=== PATIENT | male | born 1965 | race Two or more races ===

== ENCOUNTER 2018-12-06 07:00 | Inpatient (IN) | payer OTHER ==
[~2018-12-06] VITALS: Ht 162.6 cm; Wt 60.8 kg
[2018-12-08] VITALS (14 sets, daily range): BP systolic 125–142; BP diastolic 79–98
[2018-12-08] MEDS ORDERED: LR 1000ml 1,000 ML IVLG SCH (06:32)
--- NOTE | 2018-12-08 06:38 | Anethesia Preoperative Eval ---
Anesthesia Pre-op PMH/ROS General Date of Evaluation: Dec 08, 2018 Time of Evaluation: 09:36 Anesthesiologist: Gal ASA Score: ASA 1 Mallampati Score Class I : Soft palate, uvula, fauces, pillars visible Class II: Soft palate, uvula, fauces visible Class III: Soft palate, base of uvula visible Class IV: Only hard plate visible Mallampati Classification: Class I Surgeon: Thalia Diagnosis: Neck Pain Surgical Procedure: ADR C5-6, ACDF C6-7 Anesthesia History: none Family History: no anesthesia problems Allergies: Coded Allergies: No Known Allergies (Unverified , 12/04/18) Medications: see eMAR Patient NPO?: Yes Anesthesia Pre-op Phys. Exam Physician Exam Vital Signs Date Time Temp Pulse Resp B/P (MAP) Pulse Ox O2 Delivery O2 Flow Rate FiO2 12/08/18 08:10 97.6 65 18 125/79 (94) 98 12/08/18 08:25 Room Air Constitutional: NAD Neurologic: CN 2-12 intact Cardiovascular: RRR Respiratory: CTA Gastrointestinal: S/NT/ND Airway Exam Mallampati Score: Class I MO: full ROM: limited Teeth: missing, intact Anesthesia Pre-op A/P Risk Assessment & Plan Assessment: ASA 1 Plan: GA, SED, GlideScope Go Status Change Before Surgery: No Pre-Antibiotics Dru Grams Ancef IV Given Within 1 Hr of Incision: Yes Time Given: 10:06 Bon Satno MD Dec 08, 2018 06:38
[2018-12-08] MEDS ORDERED: Hydromorphone 0.5mg/0.5ml inj IVP PRN (06:45)
[2018-12-08] MEDS ORDERED: Acetaminophen (Non formulary) 100 ML IV ONE (06:45)
[2018-12-08] MEDS ORDERED: HYDROcodone/Acetamin 7.5/325 tab ORAL PRN ×3 (06:45→15:00)
[2018-12-08] MEDS ORDERED: Meperidine 50mg/ml Inj(FOR RIGORS ONLY) IVP PRN (06:45)
[2018-12-08] MEDS ORDERED: fentaNYL 100 mcg/2 mL IV PRN (06:45)
[2018-12-08] MEDS ORDERED: Ketorolac 30mg Inj IV PRN ×2 (06:45)
[2018-12-08] MEDS ORDERED: LORazepam Inj 2mg/ml 1ml IV PRN (06:45)
[2018-12-08] MEDS ORDERED: Labetalol 5mg/ml 20ml vial IV PRN (06:45)
[2018-12-08] MEDS ORDERED: DiphenhydrAMINE 50mg/ml Inj IVP PRN (06:45)
[2018-12-08] MEDS ORDERED: Metoclopramide 10mg/2ml Inj IVP PRN ×2 (06:45→15:00)
[2018-12-08] MEDS ORDERED: HYDROcodone/Acetamin 5/325 tab ORAL PRN ×2 (06:45→15:00)
[2018-12-08] MEDS ORDERED: Atropine Sulfate 0.4mg/ml inj IVP PRN (06:45)
[2018-12-08] MEDS ORDERED: oxyCODONE HCL/Acetaminophen 5/325mg ORAL PRN (06:45)
[2018-12-08] MEDS ORDERED: Midazolam 2mg/2ml Inj IVP PRN (06:45)
[2018-12-08] MEDS ORDERED: ceFAZolin sod 2 GM in D5W 110 ML IVPB ONE (07:00)
--- NOTE | 2018-12-08 07:26 | Brief Operative Note ---
Immediate Post Operative Note Operative Note Chief Complaint: neck pain and radiculopathy Pre-op Diagnosis: Cervical herniation Procedure: Cervical 56 artificial disc replacement, Cervical 67 anterior cervical discectomy and fusion Post-op Diagnosis: same as pre-op Findings: consistent w/pre-op dx studies Surgeon: Thalia Nursery Supervisor: Daniel Anesthesiologist: Gal Anesthesia: general Specimen: none Complications: none Condition: stable Fluids: IVF Estimated Blood Loss: minimal Drains: none Implant(s) used?: Yes - prodisc c sz 5, nuvasiver interlock c sz 6, screws 3x13 Royer Vásquez MD Dec 08, 2018 07:26
--- NOTE | 2018-12-08 07:26 | Pre-Procedure Note/Attestation ---
Pre-Procedure Note/Attestation Complete Prior to Procedure Planned Procedure: not applicable Procedure Narrative: Cervical 56 artificial disc replacement, Cervical 67 anterior cervical discectomy and fusion Indications for Procedure Pre-Operative Diagnosis: Cervical herniation Attestation I attest that I discussed the nature of the procedure; its benefits; risks and complications; and alternatives (and the risks and benefits of such alternatives ), prior to the procedure, with the patient (or the patient's legal account service representative). I attest that, if there was a reasonable possibility of needing a blood transfusion, the patient (or the patient's legal account service representative) was given the [facility] standardized written summary, pursuant to the Levon [place]ight[place] Blood Safety Act ([place] Health and Safety Code # 1645, as amended). I attest that I re-evaluated the patient just prior to the surgery and that there has been no change in the patient's H&P, except as documented below: Royer Vásquez MD Dec 08, 2018 07:26
[2018-12-08] MEDS ORDERED: NKM (08:09)
--- NOTE | 2018-12-08 08:50 | 48 Hour Post Anesthesia Eval ---
Post Anesthesia Evaluation Procedure: ADR C5-6, ACDF C6-7 Date of Evaluation: Dec 08, 2018 Time of Evaluation: 14:43 Blood Pressure Systolic: 125 0: 87 Pulse Rate: 78 Respiratory Rate: 18 Temperature (Fahrenheit): 98.2 O2 Sat by Pulse Oximetry: 98 Airway: patent Nausea: No Vomiting: No Pain Intensity: 2 Hydration Status: adequate Cardiopulmonary Status: Stable Mental Status/LOC: patient returned to baseline Follow-up Care/Observations: 0 Post-Anesthesia Complications: 0 Follow-up care needed: N/A Bon Santo MD Dec 08, 2018 08:50
--- NOTE | 2018-12-08 08:50 | Immediate Post-Op Evaluation ---
Immediate Post-Op Evalulation Immediate Post-Op Evalulation Procedure: ADR C5-6, ACDF C6-7 Date of Evaluation: Dec 08, 2018 Time of Evaluation: 12:25 IV Fluids: 1000 LR Blood Products: 0 Estimated Blood Loss: 40 Urinary Output: 700 Blood Pressure Systolic: 127 Blood Pressure Diastolic: 90 Pulse Rate: 83 Respiratory Rate: 16 O2 Sat by Pulse Oximetry: 100 Temperature (Fahrenheit): 98.7 Pain Score (1-10): 2 Nausea: No Vomiting: No Complications 0 Patient Status: awake, reacts, patent, extubated, none Hydration Status: adequate Dru Grams Ancef IV Given Within 1 Hr of Incision: Yes Time Given: 10:06 Bon Santo MD Dec 08, 2018 08:50
[2018-12-08] MEDS ORDERED: fentaNYL 100 mcg/2 mL IV ONE ×2 (08:51→11:01)
[2018-12-08] MEDS ORDERED: Neostigmine 1mg/ml 10ml Inj ONE (08:54)
[2018-12-08] MEDS ORDERED: Glycopyrrolate 0.2mg/ml 1ml Vial ONE ×4 (08:54→11:40)
[2018-12-08] MEDS: Docusate 100mg cap ORAL SCH ×2 (09:00→18:11)
[2018-12-08] MEDS ORDERED: Rocuronium Bromide 50mg/5ml Inj IV ONE (09:27)
[2018-12-08] MEDS ORDERED: NS Irrig 1000ml ONE (09:30)
[2018-12-08] MEDS ORDERED: LR 1000ml ONE (09:30)
[2018-12-08] MEDS ORDERED: Sterile Water Irrig 1000ml IRRIG ONE (09:30)
[2018-12-08] MEDS ORDERED: Propofol 1,000mg/ 100ml btl IV ONE (09:30)
[2018-12-08] MEDS ORDERED: Thrombin 5000 units TOPIC ONE (09:32)
[2018-12-08] MEDS ORDERED: Gelfoam Size TOPIC ONE (09:32)
[2018-12-08] MEDS ORDERED: Bacitracin 50000 Units Vial ONE (09:32)
[2018-12-08] MEDS ORDERED: Lidocaine 1% MPF 10mg/ml 5ml ONE (09:34)
[2018-12-08] MEDS ORDERED: Lidocaine 1% Plain 30 ml INJ ONE ×2 (09:52→11:22)
[2018-12-08] MEDS ORDERED: ePHEDrine 50mg/ml Inj ONE (10:46)
--- NOTE | 2018-12-08 13:55 | NUR ---
NURSE NOTES: Patient arrived on unit via hospital bed. Stable. Denies pain or SOB. Patient oriented to room, call light, and unit. Patient's and daughter at bedside. Patient encouraged to use call light for assistance, verbalized understanding. Patient's surgical dressing c/d/i. Ice pack in place. Patient is in bed in locked and lowest position with call light within reach. Will continue to monitor.
[2018-12-08] MEDS ORDERED: Chloraseptic Spray 20mL Bottle ORAL PRN (15:00)
[2018-12-08] MEDS ORDERED: Naloxone 0.4mg/ml Inj IVP PRN (15:00)
[2018-12-08] MEDS ORDERED: Milk of Magnesia 30ml Ud ORAL PRN (15:00)
[2018-12-08] MEDS ORDERED: Morphine Sulfate 2mg/ml Inj(IV/IM USE ONLY) IV PRN (15:00)
[2018-12-08] MEDS ORDERED: HYDROmorphone 1mg/ml Carpuject IVP PRN (15:00)
[2018-12-08] MEDS ORDERED: Morphine Sulfate 4mg/ml Inj (IV USE ONLY) IV PRN ×2 (15:00)
[2018-12-08] MEDS: NS w/KCl 20mEq 1000ml 1,000 ML IV SCH (16:44)
--- NOTE | 2018-12-08 17:09 | Diagnostic Imaging Report ---
INDICATION: Pain, intraoperative TECHNIQUE: Intraoperative imaging Fluoroscopy time: 26.5 seconds Total dose: 0.05091 mGym2 Total number of images: 4 COMPARISON: None FINDINGS: Intraoperative images demonstrate a surgical tool projected at the anterior aspect of the C6-7 disc. Subsequent images demonstrate placement of a disc prosthesis at the C5-6 disc and anterior fusion hardware at C6-7. IMPRESSION: Intraoperative imaging, as described
--- NOTE | 2018-12-08 18:00 | Operative Note - Dictated ---
DATE OF OPERATION: 12/08/2018 SURGEON: Royer Vásquez MD, Orthopedic Spine Surgeon. FOUNDRY WORKER: RONALD Roth. PREOPERATIVE DIAGNOSES: 1. Intractable neck pain. 2. Radiculopathy. 3. Herniation, C5-C6 and C6-C7. 4. Neural foraminal stenosis C5-C6 and C6-C7. 5. Stenosis. POSTOPERATIVE DIAGNOSES: 1. Intractable neck pain. 2. Radiculopathy. 3. Herniation, C5-C6 and C6-C7. 4. Neural foraminal stenosis C5-C6 and C6-C7. 5. Stenosis. PROCEDURE PERFORMED: 1. Anterior cervical discectomy and artificial disc replacement of C5-C6, using a Synthes Prodisc C 5 height. 2. Anterior cervical discectomy and fusion of C6-C7, Nuvasive Interlock C size 6 PEEK cage and three 13 mm screws with 1 mL of Osteocell allograft bone and local autograft. 3. Use of intraoperative microscope. 4. Motor evoked potential monitoring. 5. Somatosensory evoked potential monitoring. 6. Supervision and interpretation of fluoroscopy. COMPLICATIONS: None. ANESTHESIA: General. ESTIMATED BLOOD LOSS: Less than 100 mL. INDICATIONS FOR SURGERY: This patient is a 52-year-old male who has a history of diagnoses as listed above. As of result of this, the patient sustained intractable neck pain, radiculopathy, herniation C5-C6 and C6-C7, neural foraminal stenosis C5-C6 and C6-C7, stenosis. We tried a course of conservative management but despite this course there was still a significant component of persistent, recalcitrant neck pain and arm pain. The MRI demonstrated significant neural foraminal compromise secondary to disc herniations at C5-C6 and C6-C7. We had a long discussion with Robel regarding the risks and benefits of surgery. Our discussion included but was not limited to nonoperative management, chiropractic management, another epidural steroid injection as well definitive management in the form of surgery. We recommended an artificial disc replacement of C5-C6 and anterior cervical discectomy and fusion of C6-C7 as final definitive management. We reviewed the risks and benefits of surgery with the patient. Our discussion included a comprehensive review of the clinical issues and the nature of the clinical decision. We reviewed the alternatives, including doing nothing. The patient elected to proceed accordingly with an artificial disc replacement of C5-C6 and anterior cervical discectomy and fusion of C6-C7. We had a long discussion regarding the risks, alternatives and benefits of surgery. Our description of the risks included a discussion in person as well as a signed consent which detailed all pertinent risks from the procedure itself. Briefly, our discussion included but was not limited to infection, bleeding, pseudarthrosis, spinal cord injury, neurovascular injury, dural tear, CSF leak, neuropathy, paralysis, permanent weakness/drop foot/drop arm, paresthesias, blindness, palsy and weakness. The patient understood there may be a need for a revision surgery or additional procedures. Approach-related complications including dysphonia, dysphagia, blindness, permanent vocal cord and neural injury, hematoma, swallowing and breathing difficulty. Medical complications were reviewed including liver, kidney, shock, cardiopulmonary failure, anesthesia complications including , swelling, damage to the musculature, larynx/voice injury or loss, esophagus/throat, trachea, blood vessels and muscles/muscular sprain and lungs/pneumothorax during this surgical procedure; injury to deeper structures may be temporary or permanent. After this review of risks, the patient understood these and elected to proceed. A written and verbal consent was given. We discussed the pros and cons of all the alternatives. We discussed the uncertainties associated with the decision. Afterwards I assessed the patient's understanding and explored their preferences. All questions were answered and no guarantees were given. Medical clearance was obtained prior to surgery. INTRAOPERATIVE FINDINGS: C5-C6: There was a bilobed disc herniation noted. There was a tear in the posterior longitudinal ligament approximately 20 degrees on the left side. This tear was probed with a Microsect 1B and through this tear, we noticed a posterior limb of the herniated disc fragment. This was completely resected with a Kerrison 1 and 2 rongeur as well as the Guzman pituitary. The disc itself was not collapsed, and was spongy. There was no calcification within the disc whatsoever. We did not believe this was not degenerative in nature and more of a traumatic process due to the tear in the PLL. C6-C7: There was a tear noted in the left side of the posterior longitudinal ligament. The tear itself was approximately 20 degrees cephalad to caudad. Through this tear, I probed with a Microsect 1B, and 2B curette and this led to the posterior limb of the disc fragment, which was herniated and encroaching posteriroly on the thecal sac and spinal cord. This was resected with a combination of Kerrison 1 and 2 rongeurs until the entire thecal sac and neural elements were decompressed. We did feel that the disc itself was encroaching on the neural foramina and that the disc itself was spongy, not calcified, or degenerative in anyway. DESCRIPTION OF PROCEDURE: Under the benefit of general endotracheal anesthesia and with the assistance of the entire operative team, the patient was moved from the gurney onto the operative table in the supine position. The head was secured and carefully positioned appropriately. Bilateral arms were secured with GelPads and foam and all bony prominences were padded. For the bilateral lower extremities SCD and NIKITA hose were placed for DVT prophylaxis. A surgical timeout was called which corroborated our planned procedure of artificial disc replacement of an artificial disc replacement of cervical C5-C6 and anterior cervical discectomy and fusion of C6-C7. Preoperative antibiotics were administered within 30 minutes of the incision for antibiotic prophylaxis. Using lateral fluoroscopic radiography, the operative levels were delineated. Next the wound was prepped and draped with Chlorhexidine and sterile drapes. An incision was based on lateral fluoroscopy and we centered our incision at the C5-C6 and C6-C7 interspace and next using a standard [place]al anterior based approach the incision was taken down through the skin and subcutaneous tissues until the vertebral bodies and their corresponding disc spaces were visualized. A needle was placed into the interspace to confirm placement of the operative interspace and we performed the remainder of procedure under microscopic visualization. Next, using a bipolar and Bovie cautery to ensure meticulous hemostasis, the longus colli was mobilized bilaterally and retractors were placed deep to the longus colli bilaterally to address retraction. Next we turned our attention to the radical anterior discectomy. This was initially performed at C5-C6 first by using a 15 blade scalpel followed by narrow pituitaries and a Microsect 5-B curette was used to denude the endplate of all cartilaginous tissue. Next using a Strevus Harry AM8 drillbit the vertebral endplates were denuded of all residual cartilage in a [id number] and layer by layer fashion, and ultimately the posterior uncinate joints bilaterally and posterior osteophytic lips and margins were carefully denuded until clear visualization of the posterior longitudinal ligament was possible. An endplate preparation was performed in the exact same fashion using an intervertebral nurse prn, sequential distraction was obtained throughout the disc space. We saw a tear/rent in the PLL and this was carefully mobilized and dissected using a Microsect 1-B curet until we visualized a discrete disc herniation with compression of the spinal cord as well as neural foramina which was left more than right sided. This neural foraminal compression was carefully resected using a Kerrison-1 and Kerrison-2 rongeurs until complete decompression of the spinal cord was visualized and complete decompression of the neural foramina and nerve root therein as well as the axilla and lateral margin of the nerve root was visualized and subsequently completely decompressed. The family was notified at one hour intervals throughout the procedure to provide for consistent updates. We next turned our attention towards trialing our implant within the disc space. We initially tried size 5 and this Prodisc Cervical spacer fit well in regards to depth and width. This implant was opened and prepared. Next under direct visualization I confirmed excellent fit in respect to the anterior and posterior vertebral bodies, the uncinate joints and in regards to toggle. Once satisfied with this placement on serial AP and lateral fluoroscopy I turned my attention towards cutting our debi. These were cut in the bones using a reciprocating drill and afterwards all free fragments of bone were irrigated. Next FloSeal was placed into the interspace, then removed in its entirety and the implant was inserted using fluoroscopic guidance. Next the Synthes Prodisc C size 5 ADR was then carefully advanced and secured into the intervertebral space under direct visualization and with supervision of AP and lateral fluoroscopic views. I next turned my attention towards the radical anterior discectomy. This was then performed at C6-C7 first by using a 15 blade scalpel followed by narrow pituitaries and a micro-sect 5-B curette was used to denude the endplate of all cartilaginous tissue. Next using a Eterniam AM8 drillbit the vertebral endplates were denuded of all cartilaginous tissue in a [id number] and layer by layer fashion, and ultimately the posterior uncinate joints bilaterally and posterior osteophytic lips and margins were carefully denuded until wide and thorough visualization of the posterior longitudinal ligament was possible. At this level the endplate preparation was performed in the exact same fashion using an intervertebral nurse prn, sequential distraction was obtained throughout the disc space. We saw a tear/rent in the PLL and this was carefully mobilized and dissected using a micro-set 1-B and 2B curette until we visualized an obvious disc herniation with compression of the spinal cord as well as neural foramina which was left more than right sided. This neural foraminal compression was carefully resected using a Kerrison-1 and Kerrison-2 rongeurs until complete decompression of the spinal cord was visualized and complete decompression of the neural foramina and nerve root therein as well as the axilla and lateral margin of the nerve root was visualized and subsequently completely decompressed. We next turned our attention towards trialing our implant within the disc space. We initially tried size 5 and afterwards size 6 trial from the Nuvasive interlock system at each level, which appeared to be appropriate under AP and lateral fluoroscopy as well as in terms of its height, depth, width and lack of toggle. The PEEK polyetheretherketone interbody cages were then both packed with allograft bone from Osteocel and local autograft bone matrix. Next these were then carefully advanced and secured into their intervertebral spaces under direct visualization and with supervision of AP and lateral fluoroscopic views. We next turned our attention towards plating. Plating was performed at each level with the Nuvasive interlock-C plating system. A total of three screws, size 13 mm in length were inserted and confirmed under AP and lateral fluoroscopy and confirmed to be in excellent position. After a finger sweep we confirmed removal of all sponges. The retractor was removed and we next turned our attention to meticulous hemostasis with FloSeal and bipolar cautery. After the sponge and needle count was again found to be correct with our second count, we next turned our attention to closure. The wound was again copiously irrigated with antibiotic impregnated saline Closure consisted of 4-0 clear nylon for the platysma, and 5-0 clear nylon for the superficial skin. Final skin closure and dressings consisted of Dermabond. Prior to final closure, a final radiograph was obtained which demonstrated the hardware is intact with excellent position throughout. The patient tolerated the procedure well. The patient was carefully extubated after the conclusion of surgery. We discussed the findings of the surgery with the family upon completion of the case. At this point the patient was transferred to the spine floor for further observation. Royer Vásquez M.D. DR: EDNA JOB#: [id number] CC: IRIS
[2018-12-08] MEDS: ceFAZolin sod 1 GM in D5W 55 ML IV SCH (18:11)
[2018-12-08] MEDS: Dexamethasone 4mg/ml vial IVP SCH (18:11)
--- NOTE | 2018-12-08 19:30 | NUR ---
HAND-OFF: Report given to Peggy MCGREGOR. Patient is stable.
[2018-12-09] MEDS: Dexamethasone 4mg/ml vial IVP SCH ×2 (00:24→06:19)
[2018-12-09] MEDS: NS w/KCl 20mEq 1000ml 1,000 ML IV SCH (02:57)
[2018-12-09] MEDS: ceFAZolin sod 1 GM in D5W 55 ML IV SCH (02:57)
--- NOTE | 2018-12-09 03:58 | NUR ---
NURSES NOTES: Patient in bed, A/O x4 , yi speaker although understands some Welsh with at bed side. Patient shows no outward signs or symptoms of distress. Surgical site, anterior neck, is clean and intact with dermabond. IV site at (L) AC space is intact and patent. VS within normal limits. All due meds given according to eMAR. Patient received two [place] 7.5-325mg for pain at 0045- effective. Bed at lowest level, call light within reach. Pt will continue to be monitored.
--- NOTE | 2018-12-09 07:25 | NUR ---
NURSE NOTES: Patient is in bed awake and able to verbalize needs. Stable. Patient complains of mild pain, will provide pain interventions as ordered. Plan of care discussed with patient and . Patient encouraged to use call light for assistance, verbalized understanding. Surgical dressing clean, dry, and intact. Patient is in bed in locked and lowest position with call light within reach. Will continue to monitor.
--- NOTE | 2018-12-09 08:03 | NUR ---
HAND OFF: Report given to BALBIR Carmichael. Patient in stable condition.
[2018-12-09] MEDS: Docusate 100mg cap ORAL SCH (09:00)
--- NOTE | 2018-12-09 09:21 | General Progress Note ---
Assessment/Plan Assessment/Plan: Neural foraminal stenosis C5-C6 and C6-C7. cervical Stenosis. Anterior cervical discectomy and artificial disc replacement of C5-C6, using a Synthes Prodisc C 5 height. PLAN 1. incentive spirometry 2. SCD 3. PT evaluation and therapy 4. Hydration 5. Pain management 6. discharge once stable with outpatient follow up Subjective Allergies: Coded Allergies: No Known Allergies (Unverified , 12/04/18) Subjective asked to follow up for postop care Objective Last 24 Hour Vital Signs Date Time Temp Pulse Resp B/P (MAP) Pulse Ox O2 Delivery O2 Flow Rate FiO2 12/08/18 21:00 Nasal Cannula 2.0 12/08/18 16:00 97.6 76 18 126/91 (103) 98 12/08/18 15:00 98.1 89 18 132/87 (102) 99 12/08/18 14:30 98.1 93 16 133/84 (100) 98 12/08/18 14:00 98.5 98 18 133/84 (100) 98 12/08/18 13:40 98.0 86 21 140/92 99 Nasal Cannula 3 12/08/18 13:25 88 17 141/97 99 Nasal Cannula 3 12/08/18 13:10 84 13 141/92 99 Nasal Cannula 3 12/08/18 12:55 79 18 133/87 99 Nasal Cannula 3 12/08/18 12:42 83 22 142/91 100 Simple Mask 6 12/08/18 12:32 80 15 138/92 100 Simple Mask 6 12/08/18 12:22 92 17 134/88 100 Simple Mask 6 12/08/18 12:17 79 15 130/98 100 Simple Mask 6 12/08/18 12:12 98.7 82 16 127/98 100 Simple Mask 6 12/08/18 12:09 78 18 98 12/08/18 12:08 83 16 100 Intake and Output 12/08/18 12/09/18 19:00 07:00 Intake Total 1100 ml 1155 ml Output Total 740 ml Balance 360 ml 1155 ml Intake IV Total 1100 ml 1155 ml Output Urine Total 700 ml Estimated Blood Loss 40 ml # Voids 1 Height (Feet): 5 Height (Inches): 4.00 Weight (Pounds): 134 Objective WDWN NAD clear breath sounds bilaterally without rhonchi or wheeze [id number] without MRG NABS nontender no HSM no CCE nonfocal Jeremy Anders MD Dec 09, 2018 09:21
--- NOTE | 2018-12-09 10:00 | Discharge Summary ---
DATE OF ADMISSION: 12/08/2018 DATE OF DISCHARGE: 12/09/2018 PROCEDURE PERFORMED DURING ADMISSION: Artificial disc replacement C5-C6, fusion C6-C7. REASON FOR ADMISSION: Herniation C5-C6, C6-C7. HOSPITAL COURSE/TREATMENT RENDERED: DISCHARGE PHYSICAL EXAM: 1. Patient was ambulating with and without the assistance of physical therapy. 2. Prior to discharge home incision was clean and dry with minimal swelling. 3. Follows commands. 4. Alert and oriented. 5. [place] discontinued, voiding. 6. Incentive spirometer at bedside. 7. IVF hep locked. MOTOR: Demonstrates expected postoperative bulk and tone. Moves biceps, triceps, and deltoid musculature on command. Moves hip flexors, quadriceps, tibialis anterior, EHL, gastrocsoleus musculature on command as well. TREATMENT RENDERED: 1. Daily nursing care. 2. Physical Therapy. 3. Occupational Therapy. 4. Intravenous medications. 5. Oral medications. 6. Daily postoperative examinations by Spine surgery team. CONDITION OF PATIENT ON DISCHARGE: The condition on discharge is stable for discharge to home. DISCHARGE INSTRUCTIONS: Our specific instructions relating to physical activity, medications diet and follow-up care are detailed in our standard operative folder and were given to this patient prior to surgery. We will however summarize these briefly as stated below. Regarding physical activity we would like the patient to limit their flexion, extension and rotation. We also require a limitation on their bending lifting and twisting. All medication has been called in prior to surgery to their pharmacy of choice. They can resume their regular diet once tolerated. We would like them to shower and limit soaking the wound in a tub/Jacuzzi/the ocean for a period of one month or until the incision is completely healed. We will have them follow up in our office in three weeks time for their regularly scheduled appointment. They understand to call our office tomorrow to schedule the time for their three week followup appointment. The patient will notify us should they experience any increase in the severity of pain, redness/swelling/ or drainage from their incision. Royer Vásquez M.D. DR: EDNA JOB#: [id number] CC:
--- NOTE | 2018-12-09 10:57 | NUR ---
PT Note PT eval completed, treatment initiated. Patient was able to perform all HEP's well and independently as follows: ankle pumps, quad sets, gluteal sets, abdominal bracing, shoulder shrugs and deep breathing. Patient was also instructed on cervical spine precautions; patient verbalized his understanding. No further PT treatments needed at this time.
--- NOTE | 2018-12-09 11:00 | NUR ---
NURSE NOTES: Patient discharged home as ordered. Stable. Denies pain or SOB. Patient has all belongings. Patient and family were given thorough discharge instructions by RN, verbalize understanding. patient was provided with written discharge instructions in yi and kinyarwanda. No IV access. Surgical site clean, dry, and intact. Ice pack given to patient for comfort. Patient verbalized that he will follow up with Dr. Vásquez in 2 weeks [address] instructed by Dr[address] Vásquez. Patient's skin is clean, dry, and intact. Patient assisted outside by RN without incident.
== END 2018-12-09 11:12 | disposition home or self-care (01) | DRG 473 ==
LOC: SDSOVERFLO 12-08 06:23 → 3E 12-08 14:25
PROC: 0RB30ZZ Excision of Cervical Vertebral Disc, Open Approach (ICD-10-PCS; principal; 2018-12-08 08:30)
PROC: 0RR30JZ Replacement of Cervical Vertebral Disc with Synthetic Substitute, Open Approach (ICD-10-PCS; principal; 2018-12-08 08:30)
PROC: 0RG10A0 Fusion of Cervical Vertebral Joint with Interbody Fusion Device, Anterior Approach, Anterior Column, Open Approach (ICD-10-PCS; principal; 2018-12-08 08:30)
DX: M50.122 Cervical disc disorder at C5-C6 level with radiculopathy (principal); M48.02 Spinal stenosis, cervical region; V89.2XXS Person injured in unspecified motor-vehicle accident, traffic, sequela; R73.03 Prediabetes
CPT/HCPCS: 36415; 72040; 76000; 86850; 86900; 86901; 87081; J2405; J2710